=== PATIENT | female | born 1970 | race African-American/Black ===

== ENCOUNTER 2016-07-02 10:35 | Emergency (ER) | payer OTHER ==
[~2016-07-02] VITALS: Ht 152.4 cm; Wt 54.4 kg
[~2016-07-02 10:35] MED LIST: BLM PO; MEDROL DOSEPAK1 PAC PO; NORCO 325 MG-51 TAB PO; PERCOCET 325 MG1 TA2 PO; TAMIFLU75 MG PO; TRAMADOL50 MG PO; ULTRAM(MONOGRAP50 MG PO
[2016-07-02 10:38] VITALS: BP 127/84
--- NOTE | 2016-07-02 10:47 | ED GI/GU/ABDOMINAL COMPLAINT ---
History of Present Illness General Chief Complaint: Nausea, Vomiting, Diarrhea Stated Complaint: N/V/D - FLU LIKE SYMPTOMS Source: patient Exam Limitations: no limitations Vital Signs & Intake/Output Vital Signs & Intake/Output ED Intake and Output 07/03 0000 07/02 1200 Intake Total 0 Output Total Balance 0 Intake, Oral 0 Patient 120 lb Weight Allergies Coded Allergies: NO KNOWN ALLERGIES (06/19/15) Reconcile Medications LIDO/MAAL/KINJAL (Magic Mouthwash) (Lido-Visc2% 30ML/[id number],MAALOX 120ml) 270 ML ESSIE 10 ML PO TID PRN Mouth Pain Methylprednisolone. (Medrol) 1 PAC PAC 1 TAB PO AD SORE THROAT Oseltamivir Phosphate (Tamiflu) 75 MG CAP 1 TAB PO BID INFLUENZA OXYCODONE HCL/ACETAMINOPHEN (Percocet 5-325 MG Tablet) 325 MG/5 MG TAB 1 TAB PO Q6P PRN PAIN TRAMADOL HCL (Tramadol) 50 MG TAB 1-2 TAB PO Q6P PRN HAND PAIN Triage Note: PT STATES THAT SHE HAD THE STOMACH BUG THAT ENDED AROUND 0300 BUT THAT HER WORK TOLD HER SHE NEEDS A WORK NOTE DUE TO SHE CALLED OUT YESTERDAY Triage Nurses Notes Reviewed? yes ? n Is pt currently ? No Onset: Abrupt Duration: day(s): Timing: recent history No Modifying Factors: none HPI: 45-year-old female comes into emergency room requesting a work note to go back to work tomorrow. Patient reports that she was sick with a GI bug this past week. Symptoms started on Sunday. Patient had nausea vomiting diarrhea. Patient reports that her symptoms resolved yesterday and she is looking to go back to work but they would not let her go back to work without a note. Denies any current vomiting diarrhea fever chills or any symptoms at this time. Denies any abdominal pain. Patient does not want any type of evaluation other than a work note. (ALLIE ASHRAF) Past History Travel History Traveled to [place] past 21 day No Medical History Any Pertinent Medical History? 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 No (ALLIE ASHRAF) Review of Systems Review of Systems Constitutional: Reports: no symptoms. EENTM: Reports: no symptoms. Respiratory: Reports: no symptoms. Cardiovascular: Reports: no symptoms. GI: Reports: see HPI. Genitourinary: Reports: no symptoms. Musculoskeletal: Reports: no symptoms. Skin: Reports: no symptoms. Neurological/Psychological: Reports: no symptoms. Hematologic/Endocrine: Reports: no symptoms. Immunologic/Allergic: Reports: no symptoms. All Other Systems: Reviewed and Negative (ALLIE ASHRAF) Physical Exam Physical Exam General Appearance: well developed/nourished Head: atraumatic, normal appearance Eyes: Bilateral: normal appearance, EOMI. Ears, Nose, Throat, Mouth: hearing grossly normal, moist mucous membrane Neck: normal inspection Respiratory: normal breath sounds Gastrointestinal: soft, non-tender Back: normal inspection Extremities: normal range of motion Neurologic/Psych: awake, alert Skin: intact, normal color Core Measures ACS in differential dx? No Severe Sepsis Present: No Septic Shock Present: No (ALLIE ASHRAF) Progress Differential Diagnosis: AAA, appendicitis, biliary colic, bowel obstruction, colon cancer, gastritis, hepatitis, pancreatitis, peptic ulcer, PUD/GERD, perforated viscous, SBO, threatened AB, UTI/pyelo Plan of Care: 07/02/2016 11:08:11 AM Patient clinically looks well. Nontoxic-appearing. In no apparent distress. Resting comfortably in room. Symptoms most consistent with viral illness. Patient does not want any further evaluation. Patient just wants a work note. Initial ED EKG: none (ALLIE ASHRAF) Departure Departure Disposition: HOME OR SELF CARE Condition: Stable Clinical Impression Primary Impression: Gastroenteritis Referrals: KINGSLEY MERIDA APRN (PCP/Family) Additional Instructions: Return if you want any further thorough evaluation. Drink plenty of fluids. Please go over all results of today's visit with your primary care doctor. Contact your primary care doctor to let them know you were here in the emergency room. There may be nonspecific findings which may not be related to your visit today here in the emergency room but may require further evaluation and chronic monitoring by your primary care doctor. If you had a laceration today the chance of foreign body always remains. You should follow-up with your primary care doctor for recheck in 3-5 days for a wound check. If you had an x-ray done there is a chance that a fracture could have been missed on initial read and you should follow-up with your primary care doctor for repeat x-rays if symptoms persist. If your blood pressure was elevated here in the emergency room please have rechecked by her primary care doctor within the next 48 hours by your primary care doctor. If you were prescribed a narcotic here in the emergency room or any type of controlled substances you're not allowed to drive while taking this medication or operate any type of heavy machinery. Narcotics can make you feel lightheaded dizziness nausea and can cause constipation. You may need to orange picker machine operator a stool softener. Thank you for choosing [facility] emergency room. Please return to the emergency room immediately if you have any other concerns worsening of symptoms. Departure Forms: Customer Survey General Discharge Information (ALLIE ASHRAF) PA/ASSURANCE SENIOR Co-Sign Statement Statement: ED Attending supervision documentation- [] I saw and evaluated the patient. I have also reviewed all the pertinent lab results and diagnostic results. I agree with the findings and the plan of care as documented in the PA's/ASSURANCE SENIOR's documentation. [X] I have reviewed the ED Record and agree with the PA's/ASSURANCE SENIOR's documentation. [] Additions or exceptions (if any) to the PAs/ASSURANCE SENIOR's note and plan are summarized below: [] (JALEESA ESPOSITO,ANTONINA)
== END 2016-07-02 10:57 ==
LOC: ERH 10:35
DX: K52.9 Noninfective gastroenteritis and colitis, unspecified (principal)
CPT/HCPCS: 99281

== ENCOUNTER 2016-10-01 13:47 | Emergency (ER) | payer OTHER ==
[~2016-10-01] VITALS: Ht 152.4 cm; Wt 54.4 kg
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
[2016-10-01] MEDS ORDERED: PERCOCET 5-3251 EACH PO (15:17)
[2016-10-01] MEDS ORDERED: DICLOFENAC SODI75 M2 PO (15:17)
[2016-10-01 15:23] VITALS: BP 132/60
== END 2016-10-01 15:24 ==
LOC: ERH 13:47
DX: S16.1XXA Strain of muscle, fascia and tendon at neck level, initial encounter (principal); S29.012A Strain of muscle and tendon of back wall of thorax, initial encounter; G44.209 Tension-type headache, unspecified, not intractable; V43.52XA Car driver injured in collision with other type car in traffic accident, initial encounter; Y93.9 Activity, unspecified; Y92.415 Exit ramp or entrance ramp of street or highway as the place of occurrence of the external cause
CPT/HCPCS: 72050

== ENCOUNTER 2016-12-30 23:58 | Emergency (ER) | payer OTHER ==
[~2016-12-30] VITALS: Ht 152.4 cm; Wt 54.4 kg
[~2016-12-30 23:58] MED LIST changes: +DICLOFENAC SODI75 M2 PO; +PERCOCET 5-3251 EACH PO
--- NOTE | 2016-12-31 00:08 | ED THROAT/DENTAL COMPLAINT ---
History of Present Illness General Chief Complaint: Sore Throat, Dental Pain Stated Complaint: SORE THROAT Source: patient Exam Limitations: no limitations Vital Signs & Intake/Output Vital Signs & Intake/Output Vital Signs Date Time Temp Pulse Resp B/P B/P Pulse O2 O2 Flow FiO2 Mean Ox Delivery Rate 12/31 0121 98.0 106 18 142/77 100 Room Air 12/31 0024 98 Room Air 12/31 0008 98.2 123 18 143/73 100 Room Air Allergies Coded Allergies: NO KNOWN ALLERGIES (06/19/15) Triage Nurses Notes Reviewed? yes Onset: Gradual Duration: day(s): (2) Timing: remote history Injury Environment: home Severity: moderate Severity Numbers: 6 Modifying Factors: Worsens With: other (swallowing). Associated Symptoms: cough HPI: Patient is a 46-year-old female presenting to the emergency department complaining of sore throat, congestion, postnasal drip, intermittent dry cough 2 days. No fevers or chills. She reports that she may have been exposed to someone who have been sick. Denies any recent travel. Denies taking anything at home to help with symptoms very denies any daily medications. No past medical history. Denies any drug or alcohol use. Sore throat is achy. Worse with swallowing. Denies chest pain palpitations or shortness of breath. (MARLI CROOK,GIULIANA) Reconcile Medications Amoxicillin 875 MG TABLET 1 TAB PO BID pharyngitis Diclofenac Sodium 75 MG TABLET.DR 1 TAB PO BID PRN pain Ferrous Sulfate 324 MG (65 MG IRON) TABLET.DR 1 TAB PO BID anemia Ibuprofen 600 MG TABLET 1 TAB PO Q6PRN PRN pain with food LIDO/MAAL/KINJAL (Magic Mouthwash) (Lido-Visc2% 30ML/[id number],MAALOX 120ml) 270 ML ESSIE 10 ML PO TID PRN Mouth Pain [Magic mouthwash] 5-10 ML PO Q4P PRN pharyngitis 1:1:1 maalox:viscous lidocaine:benadryl Methylprednisolone. (Medrol) 1 PAC PAC 1 TAB PO AD SORE THROAT Oseltamivir Phosphate (Tamiflu) 75 MG CAP 1 TAB PO BID INFLUENZA Oxycodone HCl/Acetaminophen (Percocet 5-325 MG Tablet) 5 MG-325 MG TABLET 1 TAB PO Q6H PRN PAIN OXYCODONE HCL/ACETAMINOPHEN (Percocet 5-325 MG Tablet) 325 MG/5 MG TAB 1 TAB PO Q6P PRN PAIN Prednisone 20 MG TABLET 1 TAB PO BID pharyngitis TRAMADOL HCL (Tramadol) 50 MG TAB 1-2 TAB PO Q6P PRN HAND PAIN (AMY ESPOSITO,FIDEL) Past History Travel History Traveled to [place] past 21 day No Medical History Any Pertinent Medical History? 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 No (GIULIANA CASTELAN) Review of Systems Review of Systems Constitutional: Reports: no symptoms. Comments Review of systems: See HPI, All other systems negative. Constitutional, no chills fever or weight loss HEENT: No visual changes Cardiovascular: No chest pain ,palpitation , orthopnea or ankle swelling Skin, no jaundice no rashes Respiratory: No dyspnea sputum or hemoptysis GI: No nausea no vomiting : No dysuria No hematuria Muscle skeletal: no back pain, no neck pain, Neurologic: No numbness no confusion Psych: No stress anxiety or depression,. Heme/endocrine: No bruising no bleeding no polyuria or polydipsia Immunology: No splenectomy or history of AIDS (GIULIANA CASTELAN) Physical Exam Physical Exam General Appearance: well developed/nourished, no apparent distress, alert, awake , comfortable Mouth/Throat: pnd, mild erythema Comments: Well-developed well-nourished person in no acute distress HEENT: Normal EENT exam, extraocular motion intact, no nystagmus. Pupils equally round and reactive to light and accommodation. Nose is atraumatic. External auditory canal and Tympanic membranes clear. Pharynx is mildly erythematous, no exudate. No tonsillar enlargement. Uvula midline. Positive postnasal drip. No swelling or edema. Neck: Supple, no lymphadenopathy, normal range of motion without pain or tenderness Back: Nontender, no CVA tenderness. Full range of motion Cardiovascular: Tachycardic rate and rhythms no murmurs rubs or gallops, normal JVP Respiratory: Chest nontender. No respiratory distress.breath sounds clear to auscultation bilaterally Extremity: No edema Neuro: Alert oriented x3 Skin: No appreciable rash on exposed skin, skin is warm and dry. Psych: Mood and affect is normal, memory and judgment is normal. Core Measures ACS in differential dx? No Severe Sepsis Present: No Septic Shock Present: No (GIULIANA CASTELAN) Progress Differential Diagnosis: uri, pnd, strep, viral pharyngitis, dehydration, sinus tachy, svt Plan of Care: Orders Procedure Date/time Status TSH REFLEX 12/31 26 Active COMPREHENSIVE METABOLIC PANEL 12/31 26 Active CBC WITHOUT DIFFERENTIAL 12/31 26 Complete EKG 01/01 12 Active THROAT CULTURE W/QUICK STREP 12/31 9 Active Current Medications Sig/Sebastien Start time Last Medication Dose Stop Time Status Admin Ketorolac 30 MG ONCE ONE 12/31 14 CAN Tromethamine 01/01 16 (Toradol) Laboratory Tests 12/31/16 0029: Anion Gap 14, Estimated GFR > 60, BUN/Creatinine Ratio 14.3, Glucose 78, Calcium 9.4, Total Bilirubin 0.4, AST 25, ALT 26, Alkaline Phosphatase 65, Total Protein 7.1, Albumin 4.3, Globulin 2.8, Albumin/Globulin Ratio 1.5, TSH &T3 &Free T4 Intrp Pending, CBC w Diff MAN DIFF ORDERED, RBC 3.27 L, MCV 64.7 L, MCH 19.4 L, RDW 20.4 H, MPV 7.5, Segmented Neutrophils 90 H, Lymphocytes 5 L, Monocytes 5, Platelet Estimate INCREASED, Hypochromic-Microcytic 2+, Poikilocytosis FEW, Anisocytosis 2+, Microcytic Cells 3+, PUBS MCHC 30.0 L, Fld Total RBCs Counted 100 Initial ED EKG: sinus tachy 121 bpm Hand-Off Endorsed To: FIDEL REYES MD Endorsed Time: 34 Pending: labs Comments: Patient does report decreased by mouth intake the past day secondary to sore throat. We will start IV fluids to see if this will help with the tachycardia. Patient will be signed out secondary to reevaluation after blood work. (GIULIANA CASTELAN) Comments: Patient declines blood transfusion at this time. 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 I have also reviewed all the pertinent lab results and diagnostic results. I agree with the findings and the plan of care as documented in the PA's/BUNCH BREAKER's documentation. [] I have reviewed the ED Record and agree with the PA's/BUNCH BREAKER's documentation. [] Additions or exceptions (if any) to the PAs/BUNCH BREAKER's note and plan are summarized below: [] (FIDEL REYES MD)
[2016-12-31 00:43] LABS: HEMATOCRIT 21.2 % (37-47); MEAN CORPUSCULAR HGB 19.4 PG (27.0-31.0); MEAN CORPUSCULAR VOLUME 64.7 FL (81.0-99.0); MEAN PLATELET VOLUME 7.5 FL (7.4-10.4); PLATELET COUNT 500 /CUMM (130-400); RBC DISTRIBUTION WIDTH 20.4 % (11.5-14.5); RED BLOOD CELL CT 3.27 /CUMM (4.20-5.40); WHITE BLOOD CELL COUNT 18.5 /CUMM (4.8-10.8)
[2016-12-31] MEDS ORDERED: AMOXICILLIN875 M1 PO (01:28)
[2016-12-31] MEDS ORDERED: PREDNISONE20 M1 PO (01:28)
[2016-12-31] MEDS ORDERED: Magic mouthwash PO (01:28)
[2016-12-31] MEDS ORDERED: FERROUS SULFAT324 MG PO (01:28)
[2016-12-31] MEDS ORDERED: IBUPROFEN600 M1 PO (01:28)
[2016-12-31 02:46] VITALS: BP 138/78
== END 2016-12-31 02:53 ==
LOC: ERH 23:58
PROVIDERS: Physician Assistant
DX: J02.9 Acute pharyngitis, unspecified (principal); D64.9 Anemia, unspecified; R00.0 Tachycardia, unspecified; J06.9 Acute upper respiratory infection, unspecified
CPT/HCPCS: 93005; 93010; 96361; 96374; J1885